=== PATIENT | female | born 1975 | race Caucasian/White ===

== ENCOUNTER 2021-01-12 10:17 | Outpatient (REF) | payer MEDICARE, MEDICAID, SELFPAY ==
--- NOTE | 2021-01-12 10:35 | MHC.AU.P13 ---
Hearing Instrument Maintenance Date of Visit: 01/12/21 Right Ear: Manga Artist: Phonak Model: [employer] V50-P BTE Serial Number: [id number] Repair Warranty: Loss and Damage Warranty: Battery Size: 13 Color: SILVER Tubing: TUBE LOCK Type of Mold: CANAL Left Ear: Manga Artist: Phonak Model: [employer] V50-P BTE Serial Number: [id number] RepairWarranty: Loss and Damage Warranty: Battery Size: 13 Color: SILVER Tubing: TUBE LOCK Type of Mold: CANAL Summary: Patient dropped off hearing aids for maintenance - both aids cleaned, tube lock tubings changed, and both now amplifying clearly and returned to patient. Recommendations: Recommendations: Hearing instrument follow-up or maintenance as needed. Recommendations (Other): Patient given audio RV card as not tested since 03/21/2019 Signature: Provider: CLEMENTE Hanna-HIS
== END 2021-01-12 10:18 | disposition home or self-care (01) ==
LOC: HO.HAP 10:17
PROVIDERS: Visit Provider Nurse Practitioner
DX: Z46.1 Encounter for fitting and adjustment of hearing aid (principal)
CPT/HCPCS: 92593; 99499; V5266

== ENCOUNTER 2021-02-04 09:53 | Outpatient (REF) | payer MEDICARE, MEDICAID, SELFPAY ==
--- NOTE | 2021-02-04 11:34 | MHC.AU.AHA ---
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 She arrives today to determine if there has been a change in hearing. Previous Hearing Test Results: At this clinic on 03/21/2019- Left: Normal sloping to mild/moderate sensorineural hearing loss Right: Moderate to severe sensorineural hearing loss Hearing Instrument History- Right Ear: Burr Machine Operator: Phonak Model: [employer]0-P BTE Serial Number: [id number] Battery Size: 13 Repair Warranty: Loss and Damage Warranty: Dispensed By: [facility] Date of Fittin12/17/2015 Hearing Instrument History- Left Ear: Burr Machine Operator: Boyaa [employer]ak Model: [employer] V50-P BTE Serial Number: [id number] Battery Size: 13 Warranty: Loss and Damage Warranty: Dispensed By: [facility] Date of Fittin01/12/2021 Otoscopy: Right Ear: Unremarkable Left Ear: Unremarkable Tympanometry: Tympanometry performed due to: To assess integrity of the middle ear system Right Ear: Normal Middle Ear System (Type A) Left Ear: Normal Middle Ear System (Type A) Hearing Evaluation: Transducer(s) Used: Insert Earphones Method: Conventional Audiometry Stimuli Used: Pure Tones Right Ear: Description of Hearing: Moderate to severe sensorineural hearing loss Left Ear: Description of Hearing: Normal sloping to moderate and rising to mild sensorineural hearing loss Speech Recognition Threshold (SRT): Method Used: Recorded Lists Stimuli Used: Spondee Words Right Ear: 65 dBHL Left Ear: 25 dBHL Word Discrimination: Method: Recorded Lists Word Lists Used: NU-6 Right Ear: 88% at 95 dBHL Left Ear: 100% at 65 dBHL Most Comfortable Level (MCL): Right Ear: 95 dBHL Left Ear: 65 dBHL Comparison: Compared to the most recent evaluation: Hearing is stable. Recommendations: Audiological re-evaluation in one year. See Hearing Aid Evaluation report for more information. Diagnosis: Primary Diagnosis: H90.3 Bilateral Sensorineural Hearing Loss Services Performed: Comprehensive Audiological Evaluation (CPT 23685), Tympanometry (CPT 96343) Signature: Provider: Gurjit Mcdonnell, [facility]
--- NOTE | 2021-02-04 11:36 | MHC.AU.HAS ---
Hearing Aid Evaluation Date of Visit: 02/04/21 Historical Information: Description of Hearing: Right: Moderate to severe sensorineural hearing loss Left: Normal sloping to moderate and rising to mild sensorineural hearing loss Current personal amplification information, if applicable: Phonak Bolero V50-P BTE, obtained 12/17/2015 Summary: Patient arrived for updated audiological evaluation. See separate report for details. Patient is eligible for new amplification. Options were discussed. Patient would like to stay with the BTE style. Hearing Aid Prescription: Based on the individual?s shared listening needs, communication environments, dexterity, desire for connectivity, and personal preferences, the following prescription for amplification has been made: Right ear: Ventilating Engineer: Phonak Model: Bolero M70-MD Battery Size: Rechargeable Color: Silver Type of Mold: Microsonic Glbmu-g-hptr canal Left ear: Ventilating Engineer: Phonak Model: Bolero M70-MD Battery Size: Rechargeable Color: Silver Type of Mold: Microsonic Ynjym-d-zzfh Canal Action Taken/Action Needed: Earmold Impressions Taken Medical Clearance to be requested from PCP/ENT Hearing Fitting to be scheduled when materials arrive Primary Diagnosis: H90.3 Bilateral Sensorineural Hearing Loss Signature: Provider: Gurjit Mcdonnell, CCC-A
--- NOTE | 2021-02-04 11:37 | MHC.AU.MED ---
Medical Clearance for Hearing Instrumentation Date: 02/04/21 Patient Name: Bridget Fields Date of : 1975 Referring Provider: Liudmila Chandra NP We have seen your patient on 02/04/21 and have determined that they are a candidate for amplification (See accompanying report). Specifically, they would benefit from: Hearing aid use in both ears There is a statute that addresses Medical Evaluation Requirements prior to fitting a patient with a hearing aid. According to [place] statute 265 CMR:6.03(1), (a) General. Except as provided in 265 CMR 6.03(1)(b), a hearing therapist shall not sell a hearing aid unless the prospective user has presented to the hearing therapist a written statement signed by a licensed physician that states that the patient's hearing loss has been medically evaluated and the patient may be considered a candidate for a hearing aid. The medical evaluation must have taken place within the preceding six months. Please note: Due to the [place] Statute referenced above, we cannot accept a signature other than that of a licensed physician. MOLDER HELPER and PA signatures cannot be accepted. I am in agreement with the above recommendation. There is no medical contraindication for hearing instrumentation. Physician Signature Date Physician Name (Printed)
== END 2021-02-04 09:54 | disposition home or self-care (01) ==
LOC: HO.SH 09:53
PROVIDERS: Visit Provider Nurse Practitioner
DX: Z46.1 Encounter for fitting and adjustment of hearing aid (principal); H90.3 Sensorineural hearing loss, bilateral
CPT/HCPCS: 92557; 92567; 92591; V5275

== ENCOUNTER 2021-04-06 10:23 | Outpatient (REF) | payer MEDICARE, MEDICAID, SELFPAY | END 2021-04-06 10:24 | disposition home or self-care (01) | LOC: HO.HAP 10:23 | PROVIDERS: Visit Provider Family Medicine | DX: H90.3 Sensorineural hearing loss, bilateral (principal); Z46.1 Encounter for fitting and adjustment of hearing aid | CPT/HCPCS: V5011; V5020; V5160; V5261; V5264 ==

== ENCOUNTER 2024-11-20 12:52 | Outpatient (REF) | payer MEDICARE, MEDICAID, SELFPAY ==
--- NOTE | 2024-11-20 13:55 | MHC.AU.HA3 ---
Hearing Instrument Follow-Up- Binaural Date of Visit: 11/20/24 Right Ear: Make, Model, Color, Serial Number: [id number] Pipe Wrapping Machine Operator Repair Warranty: 05/12/2024 Pipe Wrapping Machine Operator Loss and Damage Warranty: 05/12/2024 [facility] Service Plan: Battery Size: Rechargeable Aquaculture Worker/Slim Tube: Earmold/Dome/CShell/SlimTip:Microsonic Uzllb-e-ldyq canal Type of Wax Guard: Dispensed By: [facility] Date of Fittin04/06/2021 Left Ear: Make, Model, Color, Serial Number: [id number] Pipe Wrapping Machine Operator Repair Warranty: 05/12/2024 Pipe Wrapping Machine Operator Loss and Damage Warranty: 05/12/2024 [facility] Service Plan: Battery Size: 13 Aquaculture Worker/Slim Tube: Earmold/Dome/CShell/SlimTip: Microsonic Bbxng-u-izjh Canal Type of Wax Guard: Dispensed By: [facility] Date of Fittin04/06/2021 Follow-Up Summary: Seen for evaluation. Reports left tube has been slipping out. Cleaned aids, cleaned earmolds, replaced tubing. Listening check positive. Bridget reports improvement. Also noted bluetooth issue. Forget and re-paired aids, tested streaming, all set. Recommendations: Recommendations: Hearing instrument maintenance in 6 months, or sooner if needed. Diagnosis Code(s): Primary Diagnosis: H90.3 Bilateral Sensorineural Hearing Loss Signature: Provider: Angelo Alicea, [facility]
== END 2024-11-20 12:53 | disposition home or self-care (01) ==
LOC: HO.SH 12:52
PROVIDERS: Visit Provider Nurse Practitioner
DX: H90.3 Sensorineural hearing loss, bilateral (principal); Z97.4 Presence of external hearing-aid
CPT/HCPCS: 92557; 92593; 99499